=== PATIENT | male | born 1960 | race African-American/Black ===

== ENCOUNTER 2017-08-02 08:39 | Day surgery (SDC) | payer OTHER ==
[2017-07-27 16:19] VITALS: BMI 27.4
[~2017-08-02 08:39] MED LIST: LIDOCAINE HCL/PF 2% SDV 5ML VIAL ONE; PROPOFOL 20 ML ONE
[2017-08-02 09:13] VITALS: TEMP 97.8
[2017-08-02 09:40] VITALS: BP 122/65; PULSE 78
== END 2017-08-02 09:45 | disposition home or self-care (01) ==
LOC: FASU-ENDO 08:39
PROVIDERS: ATTEND Internal Medicine Gastroenterology
PROC: 0DJD8ZZ Inspection of Lower Intestinal Tract, Via Natural or Artificial Opening Endoscopic (ICD-10-PCS; principal; 2017-08-02 08:25)
DX: Z12.11 Encounter for screening for malignant neoplasm of colon (principal)